=== PATIENT | female | born 1980 | race African-American/Black ===

== ENCOUNTER → 2020-05-16 | Outpatient (CLI) | payer BC ==
--- NOTE | 2020-05-20 14:31 | RAD ---
BILATERAL SCREENING MAMMOGRAM, 3-D History: Routine screening. Comparison: None. This exam is the baseline. Technique: MLO and CC digital tomosynthesis (3D) images obtained. Radiologist reviewed these images on dedicated workstation. Findings: Breast Tissue Density B : There are scattered areas of fibroglandular density. There are no dominant masses, suspicious microcalcifications, or architectural distortion. IMPRESSION: No mammographic evidence of malignancy. Recommend routine screening. BI-RADS category 1: Negative. The images were reviewed with computer-aided detection. Patient information is entered into reminder system with a target due date for the next screening mammogram. Mammography is the most sensitive method for finding small breast cancers, but it does not detect them all and is not a substitute for careful clinical examination. A negative mammogram does not negate a clinically suspicious finding and should not result in delay in biopsying a clinically suspicious abnormality. "Our facility is accredited by the [employer] Mammography Program." Electronically signed by: Pato Fay MD (05/20/2020 2:28 PM) [id number]
== END ==
LOC: MAMMO 10:19
PROVIDERS: ATTEND Obstetrics & Gynecology
DX: Z12.31 Encounter for screening mammogram for malignant neoplasm of breast (principal)
CPT/HCPCS: 77063; 77067

== ENCOUNTER 2021-04-23 20:09 | Emergency (ER) | payer OTHER, BC ==
[~2021-04-23] VITALS: Ht 165.1 cm; Wt 100.0 kg
[2021-04-23 22:00] VITALS: BP 136/86
[2021-04-23] MEDS ORDERED: HYDROcodone/APAP 5/325MG 1 TAB TABLET PO ONE (22:00)
--- NOTE | 2021-04-23 22:02 | PHYS DOC ---
General Adult EDM: Chief Complaint: MECHANICAL FALL HPI: HPI: Patient is a 40 year old female who presents with was going down some cement stairs at work and slipped and fell down stairs. She is unsure of how many. She hit her left side of head and face and complains of neck and thoracic back pain. She rates her pain a 9 out of 10. She states she has not taken anything for pain. She states she did not lose consciousness, is not on blood thinners, denies nausea, dizziness, vomiting, vision change, focal weakness, numbness or tingling. Review of Systems: Review of Systems: Constitutional: Denies fever or chills. [] Eyes: Denies change in visual acuity. [] HENT: Denies nasal congestion or sore throat. [] Respiratory: Denies cough or shortness of breath. [] Cardiovascular: Denies chest pain or edema. [] GI: Denies abdominal pain, nausea, vomiting, bloody stools or diarrhea. [] : Denies dysuria. [] Musculoskeletal: Denies back pain or joint pain. [] Integument: Denies rash. [] Neurologic: + headache, denies focal weakness or sensory changes. [] Endocrine: Denies polyuria or polydipsia. [] Lymphatic: Denies swollen glands. [] Psychiatric: Denies depression or anxiety. [] Heart Score: C/O Chest Pain: No Physical Exam: PE: Constitutional: Well developed, well nourished, no acute distress, non-toxic appearance. [] HENT: Normocephalic, atraumatic, bilateral external ears normal, oropharynx moist, no oral exudates, nose normal. [] Eyes: PERRLA, EOMI, conjunctiva normal, no discharge. [] Neck: Normal range of motion, no tenderness, supple, no stridor. [] Cardiovascular:Heart rate regular rhythm, no murmur [] Lungs & Thorax: Bilateral breath sounds clear to auscultation [] Abdomen: Bowel sounds normal, soft, no tenderness, no masses, no pulsatile masses. [] Skin: Warm, dry, no erythema, no rash. [] Back: Left paraspinal thoracic pain tenderness, no CVA tenderness. [] Extremities: No tenderness, no cyanosis, no clubbing, ROM intact, no edema. [] Neurologic: Alert and oriented X 3, normal motor function, normal sensory function, no focal deficits noted. [] Psychologic: Affect normal, judgement normal, mood normal. [] EKG: EKG: [] Radiology/Procedures: Radiology/Procedures: [] Impression: [facility] [address] [place] [address] IMAGING REPORT Signed PATIENT: SALMA MANCIA ACCOUNT: [id number] : 1980 LOCATION: ER AGE: 40 SEX: F EXAM STATUS: PRE ER ORD. PHYSICIAN: DARRION GRACE APRN REASON: fall down stairs, pain PROCEDURE: CT HEAD AND CERVICAL SPINE WO PQRS Compliance Statement: One or more of the following individualized dose reduction techniques were utilized for this examination: 1. Automated exposure control 2. Adjustment of the mA and/or kV according to patient size 3. Use of iterative reconstruction technique CT HEAD AND CERVICAL SPINE WITHOUT CONTRAST History: Reason: fall down stairs, pain / Spl. Instructions: / History: Comparison: None. Procedure: Axial images are obtained of the head from the skull base through the vertex without IV contrast. Noncontrast helical CT of the cervical spine was performed. Axial, sagittal, and coronal reconstructions were obtained. Findings: The ventricles and sulci are normal for the patient's age. No mass-effect, midline shift, hemorrhage or obvious acute infarction is identified. Basilar cisterns are patent. Bone windows demonstrate no significant calvarial abnormality. The visualized paranasal sinuses are clear. Mastoid air cells are well aerated. There is no evidence of acute fracture or acute malalignment of the cervical spine. The facet joints are intact. The vertebral body height and alignment are maintained. No disc space narrowing is seen. No significant degenerative changes are seen. The central canal appears adequate. Visualized soft tissues of the neck demonstrate no significant abnormalities. The visualized lung apices are clear. IMPRESSION: 1. No acute intracranial abnormality. 2. No acute fracture of the cervical spine. Electronically signed by: Marc Landers MD (04/23/2021 11:40 PM) [facility] DICTATED and SIGNED BY: MARC LANDERS MD DATE: 04/23/21 [id number] [facility] [address] [place] [address] IMAGING REPORT Signed PATIENT: SALMA MANCIA ACCOUNT: [id number] : 1980 LOCATION: ER AGE: 40 SEX: F EXAM STATUS: REG ER ORD. PHYSICIAN: DARRION GRACE APRN REASON: fall, hit face on cement PROCEDURE: CT MAXILLOFACIAL WO CONTRAST PQRS Compliance Statement: One or more of the following individualized dose reduction techniques were utilized for this examination: 1. Automated exposure control 2. Adjustment of the mA and/or kV according to patient size 3. Use of iterative reconstruction technique CT MAXILLOFACIAL WITHOUT CONTRAST History: Reason: fall, hit face on cement Technique: Axial helical images of the face were obtained without contrast. Axial and coronal reconstruction was performed. Findings: There is no acute facial bone fracture. The paranasal sinuses are clear. The orbits are normal. The globes are intact. There is rightward deviation of the bony nasal septum. The orbital floors are intact. Ostiomeatal complexes are patent. Upper cervical spine alignment is maintained. IMPRESSION: No acute facial bone fracture. Electronically signed by: Marc Landers MD (04/24/2021 12:13 AM) [facility] DICTATED and SIGNED BY: MARC LANDERS MD DATE: 04/24/21 [id number] [facility] [address] [place] [address] IMAGING REPORT Signed PATIENT: SALMA MANCIA ACCOUNT: [id number] : 1980 LOCATION: ER AGE: 40 SEX: F EXAM STATUS: REG ER ORD. PHYSICIAN: DARRION GRACE APRN REASON: fall down stairs, pain PROCEDURE: CT THORACIC SPINE WO CONTRAST PQRS Compliance Statement: One or more of the following individualized dose reduction techniques were utilized for this examination: 1. Automated exposure control 2. Adjustment of the mA and/or kV according to patient size 3. Use of iterative reconstruction technique CT THORACIC SPINE WO Clinical Indication: Reason: fall down stairs, pain / Spl. Instructions: / History: Comparison: None. TECHNIQUE: Helical CT imaging of the thoracic spine is performed without IV contrast. Findings: No acute fracture of the thoracic spine is identified. The vertebral body height and alignment are maintained. No significant disc space narrowing. There is mild degenerative endplate spurring. The spinous processes are intact. No high- grade narrowing of the central canal is appreciated. No high-grade bony neural foraminal narrowing is identified. The posterior ribs are intact. There is residual thymus in the anterior mediastinum, normal variant for a patient of this age. Great vessels are normal caliber. Cardiac size normal. There is gastric lap band in appropriate position. Visualized lungs are clear. Cholecystectomy. IMPRESSION: No acute fracture or malalignment of the thoracic spine. Electronically signed by: Marc Landers MD (04/24/2021 12:26 AM) [facility] DICTATED and SIGNED BY: MARC LANDERS MD DATE: 04/24/21 [id number] Course & Med Decision Making: Course & Med Decision Making Pertinent Labs and Imaging studies reviewed. (See chart for details) See HPI. Alert and oriented x4. Ambulatory to steady gait. Speaks in full clear sentences. Full range of motion of her neck. No focal bony spinal tenderness. Left paraspinal thoracic tenderness. No bruising. Lungs are clear to auscultation all lobes. No trauma, bruising or swelling to her head. She does have left forehead tenderness with palpation. No contusion, abrasion or laceration seen. No facial swelling. No joint deformity or laxities. Skin pink warm and dry. Radial and pedal pulses are strong and present. Cap refill less than 2 seconds. [] Dragon Disclaimer: Dragon Disclaimer: This electronic medical record was generated, in whole or in part, using a voice recognition dictation system. Departure Departure Impression: Primary Impression: Head injury Qualified Codes: S09.90XA - Unspecified injury of head, initial encounter Additional Impressions: Neck pain Back pain Qualified Codes: M54.50 - Low back pain, unspecified Disposition: 01 HOME / SELF CARE / HOMELESS Condition: STABLE Referrals: ZAIN THOMASON MD (PCP) Patient Instructions: Back Pain, Adult, Cervical Sprain, Head Injury, Adult Additional Instructions: Follow-up with work comp. Drink plenty of fluids. Take medication as prescribed and with food. Remember these medications will make you sleepy so do not drive or work or drink any alcohol on top of them. Use a heating pad and ice to help with pain. If you begin having a severe headache, dizziness, vomiting return to the emergency room. Scripts Hydrocodone Bit/Acetaminophen (HYDROCODONE-APAP 5-325 ) 1 Tab Tablet 1 TAB PO PRN Q6HRS PRN for PAIN, #10 TAB 0 Refills Prov: DARRION GRACE APRN 04/24/21 Cyclobenzaprine Hcl (CYCLOBENZAPRINE HCL) 5 Mg Tablet 1 TAB PO TID, #30 TAB Prov: DARRION GRACE APRN 04/24/21 DARRION GRACE APRN Apr 23, 2021 22:01
[2021-04-23 23:14] LABS: BILIRUBIN,URINE SMALL (NEG); CLARITY,URINE CLOUDY; COLOR,URINE YELLOW; NITRITE,URINE NEGATIVE (NEG); PH,URINE 5.5 (<5.0-8.0); PROTEIN,URINE NEGATIVE (NEG-TRACE)
[2021-04-23 23:19] LABS: BACTERIA,URINE MANY /HPF (0-FEW); RBC,URINE 0 /HPF (0-2)
--- NOTE | 2021-04-23 23:42 | RAD ---
PQRS Compliance Statement: One or more of the following individualized dose reduction techniques were utilized for this examinat ion: 1. Automated exposure control 2. Adjustment of the mA and/or kV according to patient size 3. Use of iterative reconstruction technique CT HEAD AND CERVICAL SPINE WITHOUT CONTRAST History: Reason: fall down stairs, pain / Spl. Instructions: / History: Comparison: None. Procedure: Axial images are obtained of the head from the skull base through the vertex without IV co ntrast. Noncontrast helical CT of the cervical spine was performed. Axial, sagittal, and coronal rec onstructions were obtained. Findings: The ventricles and sulci are normal for the patient's age. No mass-effect, midline shift, hemorrhage or obvious acute infarction is identified. Basilar cistern s are patent. Bone windows demonstrate no significant calvarial abnormality. The visualized paranasal sinuses are clear. Mastoid air cells are well aerated. There is no evidence of acute fracture or acute malalignment of the cervical spine. The facet joints are intact. The vertebral body height and alignment are maintained. No disc space na rrowing is seen. No significant degenerative changes are seen. The central canal appears adequate. Visualized soft tissues of the neck demonstrate no significant abnormalities. The visualized lung api angela are clear. IMPRESSION: 1. No acute intracranial abnormality. 2. No acute fracture of the cervical spine. Electronically signed by: Marc Landers MD (04/23/2021 11:40 PM) [facility]
--- NOTE | 2021-04-24 00:15 | RAD ---
PQRS Compliance Statement: One or more of the following individualized dose reduction techniques were utilized for this examinat ion: 1. Automated exposure control 2. Adjustment of the mA and/or kV according to patient size 3. Use of iterative reconstruction technique CT MAXILLOFACIAL WITHOUT CONTRAST History: Reason: fall, hit face on cement Technique: Axial helical images of the face were obtained without contrast. Axial and coronal reconst ruction was performed. Findings: There is no acute facial bone fracture. The paranasal sinuses are clear. The orbits are normal. The globes are intact. There is rightward dev iation of the bony nasal septum. The orbital floors are intact. Ostiomeatal complexes are patent. Upper cervical spine alignment is maintained. IMPRESSION: No acute facial bone fracture. Electronically signed by: Marc Landers MD (04/24/2021 12:13 AM) [facility]
--- NOTE | 2021-04-24 00:28 | RAD ---
PQRS Compliance Statement: One or more of the following individualized dose reduction techniques were utilized for this examinat ion: 1. Automated exposure control 2. Adjustment of the mA and/or kV according to patient size 3. Use of iterative reconstruction technique CT THORACIC SPINE WO Clinical Indication: Reason: fall down stairs, pain / Spl. Instructions: / History: Comparison: None. TECHNIQUE: Helical CT imaging of the thoracic spine is performed without IV contrast. Findings: No acute fracture of the thoracic spine is identified. The vertebral body height and alignment are ma intained. No significant disc space narrowing. There is mild degenerative endplate spurring. The spin ous processes are intact. No high-grade narrowing of the central canal is appreciated. No high-grade bony neural foraminal narrowing is identified. The posterior ribs are intact. There is residual thymu s in the anterior mediastinum, normal variant for a patient of this age. Great vessels are normal [place] iber. Cardiac size normal. There is gastric lap band in appropriate position. Visualized lungs are cl ear. Cholecystectomy. IMPRESSION: No acute fracture or malalignment of the thoracic spine. Electronically signed by: Marc Landers MD (04/24/2021 12:26 AM) [facility]
[2021-04-24] MEDS ORDERED: HYDR-2761 PO (00:36)
[2021-04-24] MEDS ORDERED: CYCL5TAB PO (00:36)
[2021-04-24] MEDS ORDERED: CYCLOBENZAPRINE 10 MG TABLET. PO ONE (00:45)
== END 2021-04-24 00:51 | disposition home or self-care (01) ==
LOC: ER 20:09
DX: S09.90XA Unspecified injury of head, initial encounter (principal); M54.2 Cervicalgia; M54.50 Low back pain, unspecified; M54.6 Pain in thoracic spine; W10.8XXA Fall (on) (from) other stairs and steps, initial encounter; Y93.89 Activity, other specified; Y92.69 Other specified industrial and construction area as the place of occurrence of the external cause; Y99.8 Other external cause status
CPT/HCPCS: 70450; 70486; 72125; 72128; 81001; 81025; 87086; 99284